=== PATIENT | female | born 1985 | race Caucasian/White ===

== ENCOUNTER 2021-04-05 11:06 | Emergency (ER) | payer SELFPAY ==
[~2021-04-05] VITALS: Ht 180.3 cm; Wt 108.9 kg
[2021-04-05 11:34] LABS: Urine WBC None Seen /hpf (0 - 5)
[2021-04-05 11:59] LABS: Urine Bacteria FEW /hpf (None Seen); Urine Blood Negative /uL (Negative); Urine Specific Gravity 1.001 (1.001-1.035)
[2021-04-05 13:40] VITALS: BP 151/102
[2021-04-05] MEDS ORDERED: KETOROLAC TROMETH 60MG/2ML VIAL IM ONE (14:00)
== END 2021-04-05 14:47 | disposition home or self-care (01) ==
LOC: ER 11:06
DX: S29.012A Strain of muscle and tendon of back wall of thorax, initial encounter (principal); X50.1XXA Overexertion from prolonged static or awkward postures, initial encounter; Y93.89 Activity, other specified; Y92.89 Other specified places as the place of occurrence of the external cause; Y99.8 Other external cause status
CPT/HCPCS: 71046; 81001; 81025; 96372; 99284; J1885

== ENCOUNTER 2025-02-20 19:01 | Emergency (ER) | payer MEDICAID, OTHER ==
[~2025-02-20] VITALS: Ht 177.8 cm; Wt 108.1 kg
--- NOTE | 2025-02-20 19:47 | ECG ---
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
[2025-02-20 20:06] LABS: Basophils # (auto) 0.1 10 ^3/uL (0-0.2); Basophils % (auto) 0.8 % (0.0-2.0); Eosinophils # (auto) 0.2 10 ^3/uL (0-0.8); Eosinophils % (auto) 2.5 % (0.0-7.0); Hematocrit 37.6 % (36.0-46.0); Hemoglobin 12.9 g/dL (12.2-16.2); Lymphocytes # (auto) 2.3 10 ^3/uL (0.4-5.4); Lymphocytes % (auto) 29.1 % (10.0-50.0); Mean Corpuscular Hemoglobin 29.7 pg (28.0-32.0); Mean Corpuscular Hgb Conc. 34.4 g/dL (32.0-36.0); Mean Corpuscular Volume 86.3 fL (80.0-100.0); Monocytes # (auto) 0.6 10 ^3/uL (0-1.3); Monocytes % (auto) 8.1 % (0.0-12.0); Neutrophils # (auto) 4.6 10 ^3/uL (1.6-8.6); Neutrophils % (auto) 59.5 % (37.0-80.0); Nucleated Red Blood Cells % 0.2 %; Platelet Count (auto) 298 10^3/uL (140-450); Red Blood Cells 4.36 10^6/uL (4.0-5.20); Red Cell Distribution Width 14.2 % (11.8-14.3); White Blood Cell 7.8 10^3/uL (4.4-10.8)
[2025-02-20 20:12] LABS: Urine Bacteria FEW /hpf (None Seen); Urine Blood 2+ /uL (Negative); Urine Clarity Clear (Clear); Urine Color Colorless (Yellow); Urine Protein, UAD Negative (Negative); Urine Specific Gravity 1.003 (1.001-1.035); Urine Squamous Epithelial Cell FEW /hpf (<5); Urine Urobilinogen Normal (Negative); Urine WBC 1 /HPF (0-5); Urine pH 6.5 (5.0-9.0)
[2025-02-20 20:13] LABS: Chloride 104 mmol/L (98-107); Potassium 3.7 mmol/L (3.5-5.1); Sodium 138 mmol/L (136-145)
[2025-02-20 20:14] LABS: Anion Gap 8 (5-15); Carbon Dioxide 26 mmol/L (20-31)
[2025-02-20 20:19] LABS: BUN/Creatinine Ratio 18.2 (10.0-20.0); Blood Urea Nitrogen 12 mg/dL (9-23); Glucose 91 mg/dL (74-106)
[2025-02-20 20:21] LABS: INR 0.97 (0.9-1.15); Prothrombin Time 10.3 sec (9.3-11.8)
--- NOTE | 2025-02-20 21:52 | ED.PDOC ---
History of Present Illness HPI Comments 39-year-old female presents with complaint of abnormal vaginal bleeding, with associated headache, dizziness, and cramping and pressure-like pelvic pain, since February 02, 2025. She endorses on having recent history of her periods lasting longer and getting heavier since October,. Reports most recent bl eeding being heavy and dark red in appearance, with clotting, and going through 3 boxes of tampons and filling up a menstrual cup within 2 hours, today. 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 Denies any recent control, hormonal treatment, or further relevant information. Denies any weakness, lightheadedn ess, symptoms, nausea or vomiting, or further associated symptoms. Chief Complaint: Vaginal Bleed Time Seen by MD: 19:20 Reviewed Notes: Nurses Notes, Medications, Allergies Allergies: Coded Allergies: NO KNOWN ALLERGIES (Unverified , 04/05/21) Information Source: Patient Mode of Arrival: Ambulatory Severity: Moderate Timing: Hours, Weeks Duration: Since onset Prehospital treatment: None Review of Systems: REVIEW OF SYSTEMS: No fever, no chills, or fatigue HEENT: No sore throat, no earache, no congestion, no neck pain. Cardiac: No chest pain. No palpitations. Lungs: No shortness of breath, no cough. GI: No nausea, no vomiting, no diarrhea, no constipation, no abdominal pain : Abnormal vaginal bleeding. No dysuria, frequency, or urgency. No hematuria. Musculoskeletal: No joint pain , no joint swelling, no extremity edema. Skin: No rash, no itching. Neuro: No headache, no dizziness, no weakness Vital Signs Vital Signs Date Time Temp Pulse Resp B/P (MAP) Pulse Ox O2 Delivery O2 Flow Rate FiO2 02/21/25 00:02 64 12 142/94 (110) 99 02/20/25 22:44 97.9 97.9 Physical Exam General: Awake, alert and oriented. No acute distress. Skin: Skin in warm, dry and intact. Appropriate color for ethnicity. HEENT: The head is normocephalic and atraumatic. Conjunctivae are clear without exudates or hemorrhage. Sclera is non-icteric. EOM are intact. No signs of nystagmus. Eyelids are normal in appearance without swelling or lesions. Oral mucosa is pink and moist Neck: The neck is supple with normal range of motion. No JVD. Cardiac: Heart rate and rhythm are normal. No murmurs, gallops, or rubs are auscultated. Respiratory: No signs of respiratory distress. Lung sounds are clear in all lobes bilaterally without rales, rhonchi, or wheezes. Abdominal: No CVA tenderness. Abdomen is soft, non-tender without distention. Bowel sounds are present and normoactive in all four quadrants. Genitourinary: Deferred Extremities: Upper and lower extremities are atraumatic in appearance without deformity or edema. Neurological: The patient is awake, alert and oriented to person, place, and time with normal speech. Speech is clear. There is no facial asymmetry. Psychiatric: Tearful affect. Good judgement and insight. Past Medical History PAST MEDICAL HISTORY: Denies Surgical History: Denies all surgeries NURSE UNIT MANAGER History: Denies all NURSE UNIT MANAGER Hx Family History Family History: Reviewed,noncontributory to illness Social History Smoker: Non-Smoker Alcohol: Denies ETOH Use Drugs: Denies Drug Use Lives In: Home Was a procedure done? Was a procedure done?: No EKG EKG : Pulse Rate (adult): 71 [place]: Normal Cardiac Rhythm: NSR Block: None Hypertrophy: None ST: Normal Differential Dx Considerations may include: dysmenorrhea, menorrhagia, menometrorrhagia, severe anemia, arrhythmia, among others X-Ray, Labs, Meds, VS Vital Signs Date Time Temp Pulse Resp B/P (MAP) Pulse Ox O2 Delivery O2 Flow Rate FiO2 02/21/25 00:02 64 12 142/94 (110) 99 02/20/25 22:44 97.9 69 18 124/85 (98) 97 97.9 02/20/25 21:52 71 02/20/25 19:44 71 02/20/25 19:30 97.9 72 16 149/94 (112) 99 97.9 Lab Test 02/20/25 19:57 02/20/25 19:36 Range/Units White Blood Count 7.8 4.4-10.8 10^3/uL Red Blood Count 4.36 4.0-5.20 10^6/uL Hemoglobin 12.9 12.2-16.2 g/dL Hematocrit 37.6 36.0-46.0 % Mean Corpuscular Volume 86.3 80.0-100.0 fL Mean Corpuscular Hemoglobin 29.7 28.0-32.0 pg Mean Corpuscular Hemoglobin Concent 34.4 32.0-36.0 g/dL Red Cell Distribution Width 14.2 11.8-14.3 % Platelet Count 298 140-450 10^3/uL Mean Platelet Volume 7.5 6.9-10.8 fL Neutrophils (%) (Auto) 59.5 37.0-80.0 % Lymphocytes (%) (Auto) 29.1 10.0-50.0 % Monocytes (%) (Auto) 8.1 0.0-12.0 % Eosinophils (%) (Auto) 2.5 0.0-7.0 % Basophils (%) (Auto) 0.8 0.0-2.0 % Neutrophils # (Auto) 4.6 1.6-8.6 10 ^3/uL Lymphocytes # (Auto) 2.3 0.4-5.4 10 ^3/uL Monocytes # (Auto) 0.6 0-1.3 10 ^3/uL Eosinophils # (Auto) 0.2 0-0.8 10 ^3/uL Basophils # (Auto) 0.1 0-0.2 10 ^3/uL Nucleated Red Blood Cells 0.2 % Prothrombin Time 10.3 9.3-11.8 sec Prothrombin Time INR 0.97 0.9-1.15 Sodium Level 138 136-145 mmol/L Potassium Level 3.7 3.5-5.1 mmol/L Chloride Level 104 98-107 mmol/L Carbon Dioxide Level 26 20-31 mmol/L Anion Gap 8 5-15 Blood Urea Nitrogen 12 9-23 mg/dL Creatinine 0.66 0.550-1.02 mg/dL Glomerular Filtration Rate Calc 115 >90 mL/min BUN/Creatinine Ratio 18.2 10.0-20.0 Serum Glucose 91 74-106 mg/dL Calcium Level 10.0 8.7-10.4 mg/dL Urine Color Colorless Yellow Urine Clarity Clear Clear Urine pH 6.5 5.0-9.0 Urine Specific [place] 1.003 1.001-1.035 Urine Protein Negative Negative Urine Ketones Negative Negative Urine Blood 2+ H Negative /uL Urine Nitrite Negative Negative Urine Bilirubin Negative Negative Urine Urobilinogen Normal Negative mg/dL Urine Leukocyte Esterase Negative Negative /uL Urine RBC 2 0 - 4 /hpf Urine Microscopic WBC 1 0-5 /HPF Urine Squamous Epithelial Cells Few <5 /hpf Urine Bacteria Few H None Seen /hpf Urine Glucose Normal Normal mg/dL Urine Test Negative Negative PROCEDURE(s): PELUS - PELVIC REASON: Heavy vaginal bleeding, irregular administration ORDER NUMBER(s): [id number], ACCESSION NUMBER(s): [id number] INDICATION: Heavy vaginal bleeding, irregular administration TECHNIQUE: Multiple real-time grayscale transabdominal sonographic images along with color and duplex Doppler of the uterus and ovaries were obtained. COMPARISON: None FINDINGS: Uterus measures approximately 9.4 x 5.2 x 6 cm and appears unremarkable. Endometrium measures up to 10 mm in thickness and appears unremarkable. Right ovary is enlarged measuring approximately 6.9 x 4.3 x 3.8 cm and demonstrates cysts the largest measuring 5 x 2.5 x 3 cm. Left ovary measures approximately 2.6 x 1.6 x 2.2 cm and appears unremarkable. Color and duplex Doppler interrogation of the ovaries demonstrated symmetric vascular flow to both ovaries. No free fluid/fluid collection. IMPRESSION: Right ovarian cysts, the largest measuring up to 5 cm. Time of 1ST Reevaluation: 19:50 Reevaluation 1ST: Unchanged Patient Education/Counseling: Need For Follow Up Family Education/Counseling: No Family Present Departure 1 Departure Time of Disposition: 22:29 Impression: Primary Impression: Abnormal uterine bleeding Additional Impression: Ovarian cyst Disposition: 01 HOME / SELF CARE / HOMELESS Condition: Stable Additional Instructions: ED DISCHARGE INSTRUCTIONS Instructions: Please read all instructions provided in this packet carefully. Although you have been discharged from the Emergency Department, this does not mean that you have a "clean bill of health". No definitive diagnosis for your symptoms has been made today. It is possible that you are in the process of developing a serious illness. This is why you must return to the ED without fail if any new or worsening symptoms (especially if your symptoms include short of breath, skin pale, passing out, chest pain, trouble breathing, abdominal pain, fever, headache, confusion, trouble seeing, or trouble walking) It is also very important that you see a primary care doctor within the next 3-5 days to follow up. Keep upcoming appointment with your charge weigher. A copy of your ultrasound report is included below. If you are unable to get an appointment, return to the ED for re-evaluation. [facility] [address] [facility] [address] Ph: [phone] DIAGNOSTIC IMAGING Diagnostic Imaging Report : [id number] Signed PATIENT: KUMAR LOUIE ACCT: [id number] UNIT: [id number] : 1985 LOC: ER ROOM / BED: / AGE / SEX: 39 / F ADM STATUS: REG ER SERVICE 44 ORDERING PHYSICIAN: PRIMO VARMA MD PROCEDURE(s): PELUS - PELVIC REASON: Heavy vaginal bleeding, irregular administration ORDER NUMBER(s): [id number], ACCESSION NUMBER(s): [id number] INDICATION: Heavy vaginal bleeding, irregular administration TECHNIQUE: Multiple real-time grayscale transabdominal sonographic images along with color and duplex Doppler of the uterus and ovaries were obtained. COMPARISON: None FINDINGS: Uterus measures approximately 9.4 x 5.2 x 6 cm and appears unremarkable. Endometrium measures up to 10 mm in thickness and appears unremarkable. Right ovary is enlarged measuring approximately 6.9 x 4.3 x 3.8 cm and demonstrates cysts the largest measuring 5 x 2.5 x 3 cm. Left ovary measures approximately 2.6 x 1.6 x 2.2 cm and appears unremarkable. Color and duplex Doppler interrogation of the ovaries demonstrated symmetric vascular flow to both ovaries. No free fluid/fluid collection. IMPRESSION: Right ovarian cysts, the largest measuring up to 5 cm. ATED BY: RAMAN HORN MD DICTATED DATE/TIME: 02/20/252204 SIGNED BY: RAMAN HORN MD SIGNED DATE/TIME: 02/20/252204 CC: Discharged With: Self Comments 39-YEAR-OLD FEMALE WITH ABNORMAL UTERINE BLEEDING. PATIENT IS STABLE IN THE EMERGENCY DEPARTMENT. PATIENT IS NOT ANEMIC. VITAL SIGNS STABLE. 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 I reviewed the following notes from the pt's past medical encounters: N/A The following tests were ordered, and results were reviewed by me: (See diagnostic results section) The following test were independently interpreted by me: N/A Additional information was gathered from interviewing the following independent historians: N/A I reviewed and agreed with the following test results read by other providers: N/A I discussed treatments and results with patient Decision regarding hospitalization or escalation of hospital level of care: Risks and benefits of admission for further treatment of patient's condition was considered however due to patient's stable condition patient will be discharged to follow up closely or return to care for worsening of condition or inability to follow up. Critical Care Note Critical Care Time?: No Stability Stability form required: No Heart Score Heart Score: Heart Score Response (Comments) Value History N/A 0 EKG N/A 0 Age N/A 0 Risk Factors N/A 0 Troponin N/A 0 Total 0 I personally scribed for PRIMO VARMA MD ([email or web address]) on 02/20/25 at 21:52. Electronically submitted by Zeyad Lorenzo ([email or web address]). PRIMO VARMA MD February 20, 2025 21:52
--- NOTE | 2025-02-20 22:07 | DVH ---
INDICATION: Heavy vaginal bleeding, irregular administration TECHNIQUE: Multiple real-time grayscale transabdominal sonographic images along with color and duplex Doppler of the uterus and ovaries were obtained. COMPARISON: None FINDINGS: Uterus measures approximately 9.4 x 5.2 x 6 cm and appears unremarkable. Endometrium measures up to 1 0 mm in thickness and appears unremarkable. Right ovary is enlarged measuring approximately 6.9 x 4.3 x 3.8 cm and demonstrates cysts the largest measuring 5 x 2.5 x 3 cm. Left ovary measures approximately 2.6 x 1.6 x 2.2 cm and appears unremarka ble. Color and duplex Doppler interrogation of the ovaries demonstrated symmetric vascular flow to emanuel th ovaries. No free fluid/fluid collection. IMPRESSION: Right ovarian cysts, the largest measuring up to 5 cm.
[2025-02-20 22:44] VITALS: TEMP 97.9
[2025-02-21 00:02] VITALS: BP 142/94; PULSE 64; RESP 12; O2SAT 99
== END 2025-02-21 00:03 | disposition home or self-care (01) ==
LOC: ER 19:01
DX: N83.201 Unspecified ovarian cyst, right side (principal); N93.9 Abnormal uterine and vaginal bleeding, unspecified
CPT/HCPCS: 36415; 76830; 76856; 80048; 81001; 81025; 85025; 85610; 93005